=== PATIENT | female | born 2000 | race Caucasian/White ===

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

== ENCOUNTER 2022-05-29 03:50 | Inpatient (IN) ==
[2022-05-29] MEDS ORDERED: miSOPROStoL 25 MCG TABLET PO ONE (04:30)
[2022-05-29] MEDS ORDERED: Famotidine 20 MG/2 ML VIAL IVP PRN (04:34)
[2022-05-29] MEDS ORDERED: Metoclopramide 10 MG/2 ML VIAL IVP PRN (04:34)
[2022-05-29] MEDS ORDERED: Naloxone 0.4 MG/ML INJ IVP PRN (04:34)
[2022-05-29] MEDS: Ringers Solution, Lactated 1,000 ML IVC SCH ×3 (04:50→16:11)
[2022-05-29 04:54] LABS: Basophils % 0.2 %; Eosinophils # 0.1 K/mcL (0.0-0.6); Eosinophils % 0.8 %; Hematocrit 35.3 % (35.3-44.9); Hemoglobin 11.9 g/dL (11.5-15.4); Immature Granulocytes % 0.5 % (0-4); Lymphocytes # 3.1 K/mcL (0.6-4.6); Lymphocytes % 28.9 %; Mean Corpuscular HGB Conc 33.7 g/dL (31.6-35.5); Mean Corpuscular Volume 88.9 fL (83.0-100.0); Mean Platelet Volume 10.6 fL (9.4-12.4); Monocytes # 0.9 K/mcL (0.0-1.3); Monocytes % 8.3 %; Neutrophils # 6.6 K/mcL (1.6-8.9); Platelet Count 171 K/mcL (140-400); Red Blood Count 3.97 M/mcL (3.82-4.97); Red Cell Distribution Width 13.3 % (11.5-14.5); Segmented Neutrophils % 61.3 %; White Blood Count 10.8 K/mcL (4.3-11.1)
[2022-05-29] MEDS ORDERED: Oxytocin 30 UNIT/503 ML BAG IVC SCH ×2 (08:30→23:20)
[2022-05-29] MEDS ORDERED: *HR* FentaNYL (PF) 100 MCG/2 ML VIAL EP ONE (09:38)
[2022-05-29] MEDS ORDERED: Ropivacaine/PF 0.2% 20 ML VIAL EP ONE (09:38)
[2022-05-29] MEDS ORDERED: EPHEDrine sulfate 50 MG/10 ML VIAL IVP PRN (09:38)
[2022-05-29 09:40] LABS: Amphetamine Screen,Urine Negative ng/mL (Cutoff=1000); Barbiturate Screen,Urine Negative ng/mL (Cutoff=200); Benzodiazepines Screen,Urine Negative ng/mL (Cutoff=200); Cannabinoid Screen,Urine Negative ng/mL (Cutoff = 50); Cocaine Screen,Urine Negative ng/mL (Cutoff= 300); Opiate Screen,Urine Negative ng/mL (Cutoff=300); Phencyclidine Screen,Urine Negative ng/mL (Cutoff=25)
[2022-05-29] MEDS: Epidural Premix (fent/bupiv) 110 ML EP SCH ×2 (12:32→18:35)
[2022-05-29] MEDS ORDERED: Benzocaine/Menthol 56 GM AEROSOL SPRAY TP PRN (23:20)
[2022-05-29] MEDS ORDERED: Rho Immune Globulin 1,500 UNIT SYRINGE IM PRN (23:20)
[2022-05-29] MEDS ORDERED: Ondansetron ODT 4 MG TAB.RAPDIS SL PRN (23:20)
[2022-05-29] MEDS ORDERED: Lanolin 7 G OINT...G. TP PRN (23:20)
[2022-05-29] MEDS: Ibuprofen 600 MG TABLET PO SCH (23:47)
[2022-05-29] MEDS: Acetaminophen 325 MG TABLET PO SCH (23:48)
[2022-05-30 01:27] VITALS: O2SAT 97
[2022-05-30] MEDS ORDERED: Prenatal Vit/FA 1 EACH TABLET PO SCH (09:00)
[2022-05-30] MEDS: Ibuprofen 600 MG TABLET PO SCH ×2 (10:06→15:39)
[2022-05-30] MEDS: Acetaminophen 325 MG TABLET PO SCH (19:54)
[2022-05-30 21:34] VITALS: BP 121/70; PULSE 74; TEMP 97.6
== END 2022-05-30 22:30 | disposition home or self-care (01) | DRG 807 ==
LOC: 1NENULAB 03:50 → 1NENUOBS 23:00
PROVIDERS: ADMIT Registered Nurse; ATTEND Registered Nurse